=== PATIENT | female | born 1965 | race Caucasian/White ===

== ENCOUNTER 2018-06-21 14:45 | Inpatient (IN) | payer OTHER ==
[2018-06-21] VITALS (10 sets, daily range): BP systolic 113–148; BP diastolic 56–83
[~2018-06-21] VITALS: Ht 165.1 cm; Wt 86.2 kg
[2018-06-21] MEDS ORDERED: CELEXA20 MG PO (15:21)
[2018-06-21] MEDS ORDERED: XANAX 0.5 MG0.5 MG PO (15:22)
[2018-06-21] MEDS ORDERED: LOPRESSOR50 PO (15:22)
[2018-06-21] MEDS ORDERED: PROTONIX 20 MG20 M1 PO (15:22)
[2018-06-21 15:27] LABS: ABSOLUTE NEUTROPHILS 6.3 thou/uL (1.4-8.2); BASOPHILS 0.3 % (0.0-2.0); EOSINOPHILS 0.2 % (0.0-3.0); HEMATOCRIT 48.4 % (37.0-47.0); HEMOGLOBIN 17.1 gm/dL (12.0-15.0); LYMPHOCYTES 27.5 % (24.0-44.0); MCH 34.6 pg (26.0-34.0); MCHC 35.3 g/dL (28.0-37.0); MONOCYTES 3.1 % (1.0-8.0); PLATELET COUNT 212 thou/uL (150-400); POLYS 68.9 % (36.0-66.0); RBC 4.94 mil/uL (4.20-5.00); RDW 13.9 % (10.5-14.5); WBC 9.2 thou/uL (4.0-11.0)
[2018-06-21 15:35] LABS: ANION GAP 17 mmol/L (7-16); BUN 6 mg/dL (7-18); CALCIUM 9.9 mg/dL (8.5-10.1); CHLORIDE 96 mmol/L (98-107); CO2 23 mmol/L (21-32); CREATININE 0.8 mg/dL (0.6-1.0); GLUCOSE 138 mg/dL (74-106); POTASSIUM 3.2 mmol/L (3.5-5.1); SODIUM 136 mmol/L (136-145)
[2018-06-21 15:44] LABS: SGOT 85 U/L (15-37); SGPT 48 U/L (30-65); TOTAL BILIRUBIN 1.1 mg/dL (<0.1-1.0); TOTAL PROTEIN 8.4 g/dL (6.4-8.2); TROPONIN-I <0.06 ng/mL (<0.06)
[2018-06-21 17:26] LABS: MAGNESIUM 1.4 mg/dL (1.8-2.4); PHOSPHORUS 2.4 mg/dL (2.5-4.9)
[2018-06-21 17:53] LABS: FOLIC ACID 5.6 ng/mL (8.6-58.9)
--- NOTE | 2018-06-21 19:12 | NUR ---
Patient admitted to room 245 from ED via cart. Able to stand and get to the bed independently. Tremers noted. Some headache and nausea. Able to eat small bites of food. CIWAs as documented. Had home meds alprazolam bottle with family member's name on it, this was put into security bag and sent to pharmacy. Purse searched, no other medications. Continue to monitor.
[2018-06-22] VITALS (21 sets, daily range): BP systolic 118–156; BP diastolic 63–92
[2018-06-22 00:32] LABS: MAGNESIUM 1.5 mg/dL (1.8-2.4); POTASSIUM 3.5 mmol/L (3.5-5.1)
--- NOTE | 2018-06-22 02:16 | NUR ---
ASSUMED CARE OF PT AT 1900. PT HAD RECENTLY ARRIVED IN THE ICU FROM THE ER. PT HAS BEEN A&O X4, ANXIOUS, AND HAS A HEADACHE OFF AND ON. AT TIMES, PT HAS HAD SOME NAUSEA. CIWA HAS RANGED MOSTLY BETWEEN 5 AND 9, WITH ONE RESULT 13. PT HAS BEEN GIVEN ATIVAN TWICE, AND RESPONDS WELL TO IT. MAGNESIUM AND POTASSIUM REPLACED AROUND 1999 FROM ADMISSION LABS. MAGNESIUM AND POTASSIUM STILL LOW WHEN RECHECKED, AND BOTH WERE REPLACED AGAIN PER PROTOCOL. ELECTROLYTES WILL BE CHECKED WITH MORNING LABS. ASSESSMENTS AND VITALS DOCUMENTED. WILL CONTINUE TO MONITOR.
[2018-06-22 05:29] LABS: MAGNESIUM 1.6 mg/dL (1.8-2.4); POTASSIUM 3.4 mmol/L (3.5-5.1)
[2018-06-22 10:11] LABS: MAGNESIUM 1.5 mg/dL (1.8-2.4); POTASSIUM 3.3 mmol/L (3.5-5.1)
[2018-06-22 16:13] LABS: POTASSIUM 4.3 mmol/L (3.5-5.1)
--- NOTE | 2018-06-22 16:31 | NUR ---
SHIFT SUMMARY: ALERT AND ORIENTED, TREMORS NOTED AND ON ETOH WITHDRAWAL PROTOCOL. VITALS STABLE, MEDICATED FOR ANXIETY WITH PRN MEDS. TOLERATING DIET WELL, MILD NAUSEA AND PRN ZOFRAN GIVEN WITH RELIEF. UP TO THE BATHROOM WITH ASSIST. FALL PRECAUTIONS IN PLACE. WILL CONTINUE WITH POC.
--- NOTE | 2018-06-22 22:09 | EKG ---
[address] [place] [address] ELECTROCARDIOGRAM REPORT Name: SERGIO VERGARA Room #: 245-P ADM IN M.R.#: [id number] Admission: 06/21/18 Attend Phys: Isidoro Boss Discharge: Date of : 63 Report #: [id number] THIS REPORT FOR: //name// [facility] ED Test Date: 2018-06-21 Test Time: 14:58:43 Pat Name: SERGIO VERGARA Department: Room: [facility] Gender: F Transit Mix Operator: AME : 1965 Requested By: Charlee Cunningham Order Number: [id number] MD: Laurent Prabhakar Measurements Intervals [place] Rate: 74 P: 59 WV: 154 QRS: 20 QRSD: 86 T: -1 QT: 493 QTc: 547 Interpretive Statements Sinus rhythm Probable left atrial enlargement Nonspecific T abnormalities, inferior leads No previous ECG available for comparison Electronically Signed On 06-22-2018 22:08:54 DRILL SHARPENER OPERATOR by Laurent Prabhakar [email or web address] <ELECTRONICALLY SIGNED> By: Laurent Prabhakar MD 06/22/18 [id number] MD SUE Valdez
[2018-06-22 23:11] LABS: AMP/METHAMP Negative (Negative); BARBITURATES Negative (Negative); BENZODIAZEPINES POSITIVE (Negative); COCAINE Negative (Negative); METHADONE Negative (Negative); OPIATES POSITIVE (Negative); PCP Negative (Negative)
[2018-06-23] VITALS (25 sets, daily range): BP systolic 121–159; BP diastolic 66–86
--- NOTE | 2018-06-23 05:05 | NUR ---
PT IS STILL AGITATED AND TREMORING DURING NOC SHIFT WITH CWAL 7-9. SYMPTOMS WERE HELPED WITH MEDICATION. ASSESSMENT CHARTED. UDS WAS SENT TO LAB WITH POSTIVE RESULTS FOR BENZOS AND OPIODS. PLANS ARE FOR PATIENT TO BE EVALUATED BY PSYCH TODAY. CALL LIGHT IN REACH. ALL NEEDS ADDRESSED. CONTINUE WIHT POC.
[2018-06-23 05:33] LABS: CALCIUM 8.6 mg/dL (8.5-10.1); CREATININE 0.7 mg/dL (0.6-1.0); MAGNESIUM 1.7 mg/dL (1.8-2.4); PHOSPHORUS 3.1 mg/dL (2.5-4.9); POTASSIUM 3.9 mmol/L (3.5-5.1)
--- NOTE | 2018-06-23 09:08 | NUR ---
Recommend folate and thiamine supplementation. folate level is 5.6 low.
--- NOTE | 2018-06-23 17:37 | NUR ---
PT A&O X4, PLEASANT AND COOPERATIVE. GIVEN ATIVAN PRN FOR CIWA >9. GIVEN HYDROCODONE FOR PAIN X2 TODAY. UP TO CHAIR. AMBULATING IN ROOM WITH STEADY GAIT. PLAN FOR TRANSFER TO TELE THIS EVENING. WILL CONTINUE TO MONITOR PATIENT.
--- NOTE | 2018-06-23 18:18 | NUR ---
REPORT GIVEN TO , RN 4WEST. PT TRANSFERRED WITH BELONGINGS.
[2018-06-24 05:33] VITALS: BP 140/85
--- NOTE | 2018-06-24 07:28 | NUR ---
Assumed care at 1845. Pt resting in bed. Hasnt displayed any aggressive behavior. Stated she is feeling much better. No identified needs at the moment, call light within reach. Will continue to monitor.
[2018-06-24 07:31] VITALS: BP 125/77
[2018-06-24 14:25] VITALS: BP 141/78
--- NOTE | 2018-06-24 16:15 | NUR ---
ASSUMED CARE AT 0700. AXOX4. PLEASANT. DENIES ANY HALLUCINATIONS OR CHANGES IN VISION. FOLLOWS COMMANDS WELL AND ON KEV LIBRIUM. BED ALARM ON. NO TREMORS NOTED AT THIS TIME. NECK PAIN TX WITH PAIN MEDS NORCO. THE BEHAVIORAL ISSUES SUCH AGITATION OR RESTLESS NOTED AT THIS TIME. WILL CONT TO MONOTOR CLOSELY FOR ANY CHANGES. PLACED NEAR THE NURSING STATION AND FREQUENY VISUAL CHECKS RENDERED.
[2018-06-24 19:15] VITALS: BP 131/71
--- NOTE | 2018-06-25 03:48 | NUR ---
Pt. rested quietly at intervals during the night when checked on during frequent rounds. She does c/o neck pain and was given po pain meds (see emar) with some relief noted. Up to the bathroom with standby assistance. Bed alarm is on.
[2018-06-25 05:46] VITALS: BP 131/80
[2018-06-25 08:00] VITALS: BP 137/83
[2018-06-25] MEDS ORDERED: CHLORDIAZEPOXID25 M1 PO (10:44)
[2018-06-25] MEDS ORDERED: FOLIC ACID1 MG PO (10:45)
[2018-06-25] MEDS ORDERED: VITAMIN B-1100 M1 PO (10:45)
[2018-06-25 10:51] VITALS: BP 131/80
--- NOTE | 2018-06-25 11:31 | NUR ---
DIS PT IS FOR DC TODAY. IV AND HEART MONITOR DC'D. DC PACKET AND MED SCRIPTS PROVIDED. PT IS STILL WAITING FOR HER RIDE AT THIS MOMENT.
[2018-06-25 12:47] VITALS: BP 131/80
== END 2018-06-25 13:16 | disposition home or self-care (01) | DRG 640 ==
LOC: ER 14:45 → ICU 16:30 → EROBS 16:30 → ICU 17:26 → 4W 06-23 18:34
PROVIDERS: Internal Medicine; Physician Assistant; ADMIT Hospitalist
DX: E87.6 Hypokalemia (principal); G92 Toxic encephalopathy; F10.231 Alcohol dependence with withdrawal delirium; E46 Unspecified protein-calorie malnutrition; R44.3 Hallucinations, unspecified; R07.89 Other chest pain; F32.9 Major depressive disorder, single episode, unspecified; F41.9 Anxiety disorder, unspecified; E83.42 Hypomagnesemia; Z68.31 Body mass index [BMI] 31.0-31.9, adult; Z88.0 Allergy status to penicillin; Z88.8 Allergy status to other drugs, medicaments and biological substances; Z91.81 History of falling; Z79.899 Other long term (current) drug therapy
CPT/HCPCS: 10045; 10047; 10078

== ENCOUNTER 2018-11-06 09:27 | Emergency (ER) | payer OTHER ==
[~2018-11-06] VITALS: Ht 167.6 cm; Wt 88.5 kg
[~2018-11-06 09:27] MED LIST: CELEXA20 MG PO; CHLORDIAZEPOXID25 M1 PO; FOLIC ACID1 MG PO; LOPRESSOR50 PO; PROTONIX 20 MG20 M1 PO; VITAMIN B-1100 M1 PO; XANAX 0.5 MG0.5 MG PO
[2018-11-06] MEDS ORDERED: ADVAIR HFA 230M12 GM INH (11:59)
[2018-11-06] MEDS ORDERED: ALLEGRA ALLERG180 MG PO (11:59)
[2018-11-06] MEDS ORDERED: VENTOLIN HFA 1818 GM INH (12:00)
[2018-11-06 12:03] VITALS: BP 166/77
== END 2018-11-06 12:23 | disposition home or self-care (01) ==
LOC: ER 09:27
DX: F10.239 Alcohol dependence with withdrawal, unspecified (principal); Y90.0 Blood alcohol level of less than 20 mg/100 ml; I10 Essential (primary) hypertension; M19.90 Unspecified osteoarthritis, unspecified site; Z88.0 Allergy status to penicillin; Z88.8 Allergy status to other drugs, medicaments and biological substances

== ENCOUNTER 2019-02-17 11:54 | Emergency (ER) | payer OTHER ==
[~2019-02-17] VITALS: Ht 165.1 cm; Wt 74.8 kg
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
[~2019-02-17 11:54] MED LIST changes: +ADVAIR HFA 230M12 GM INH; +ALLEGRA ALLERG180 MG PO; +VENTOLIN HFA 1818 GM INH
[2019-02-17 11:55] VITALS: BP 139/87
[2019-02-17] MEDS ORDERED: ADVAIR 250-501 EACH INH (12:04)
[2019-02-17] MEDS ORDERED: B12INJ IM (12:04)
[2019-02-17] MEDS ORDERED: ERGOCALCIF50000 UNIT PO (12:05)
[2019-02-17] MEDS ORDERED: FOLIC ACID1 MG PO (12:06)
[2019-02-17] MEDS ORDERED: LIDOCAINE PAIN1 EACH TOP (12:09)
[2019-02-17] MEDS ORDERED: ATIVAN0.5 MG PO (12:12)
[2019-02-17] MEDS ORDERED: MULTIPLE VITAM1 EAC2 PO (12:12)
[2019-02-17] MEDS ORDERED: PROTONIX 20 MG20 M1 PO (12:13)
[2019-02-17 12:16] LABS: HEMATOCRIT 35.8 % (37.0-47.0); HEMOGLOBIN 12.2 gm/dL (12.0-15.0); MCH 33.5 pg (26.0-34.0); MCHC 34.2 g/dL (28.0-37.0); MCV 97.9 fL (80.0-100.0); PLATELET COUNT 390 thou/uL (150-400); RBC 3.65 mil/uL (4.20-5.00); RDW 13.4 % (10.5-14.5)
[2019-02-17] MEDS ORDERED: PROAIR RESPICL90 MCG INH (12:18)
[2019-02-17 12:24] LABS: ANION GAP 8 mmol/L (7-16); BUN 4 mg/dL (7-18); CHLORIDE 96 mmol/L (98-107); CO2 28 mmol/L (21-32); CREATININE 0.7 mg/dL (0.6-1.0); GLUCOSE 110 mg/dL (74-106); POTASSIUM 3.1 mmol/L (3.5-5.1); SODIUM 132 mmol/L (136-145)
[2019-02-17 12:30] LABS: URINE BLOOD 1+ (Negative); URINE GLUCOSE-RANDOM* NEGATIVE (Negative); URINE KETONES NEGATIVE (Negative); URINE LEUKOCYTES-REFLEX NEGATIVE (Negative); URINE NITRITE-REFLEX NEGATIVE (Negative); URINE PROTEIN (DIPSTICK) 1+ (Negative); URINE SPECIFIC GRAVITY >= 1.030 (1.005-1.035)
[2019-02-17 12:30] LABS: ALBUMIN 2.9 g/dL (3.4-5.0); SGOT 65 U/L (15-37); SGPT 38 U/L (30-65); TOTAL BILIRUBIN 1.2 mg/dL (<0.1-1.0); TOTAL PROTEIN 6.8 g/dL (6.4-8.2)
[2019-02-17 12:31] LABS: SALICYLATE < 2.8 mg/dL (2.8-20.0)
[2019-02-17 12:32] LABS: URINE CLARITY SL HAZY; URINE COLOR DK YELLOW
[2019-02-17 12:35] LABS: ICTOTEST (BILI CONFIRMATORY) Negative (Negative); URINE BILIRUBIN NEGATIVE (Negative)
[2019-02-17 12:51] LABS: AMP/METHAMP Negative (Negative); BARBITURATES POSITIVE (Negative); BENZODIAZEPINES Negative (Negative); COCAINE Negative (Negative); METHADONE Negative (Negative); OPIATES Negative (Negative); PCP Negative (Negative)
[2019-02-17 12:52] LABS: CASTS None Seen /LPF (None Seen); MUCUS >6 Heavy strn/LPF (None Seen); SQUAMOUS 4-10 Moderate /LPF (0-3)
[2019-02-17 12:53] LABS: BACTERIA-REFLEX 1-9 Few /HPF (None Seen); CRYSTALS None Seen /LPF (None Seen); URINE RBC 0-2 Rare /HPF (0-2); URINE WBC-REFLEX 0-5 Rare /HPF (0-5)
[2019-02-17 13:04] LABS: ABSOLUTE NEUTROPHILS 4.3 thou/uL (1.4-8.2); ANISOCYTOSIS SLIGHT; LARGE PLATELETS OCCASIONAL
[2019-02-17 19:04] VITALS: BP 146/84
== END 2019-02-17 19:04 | disposition short-term general hospital (02) ==
LOC: ER 11:54 → EROBS 13:18 → ER 13:18
PROVIDERS: Physician Assistant
DX: G93.40 Encephalopathy, unspecified (principal); E87.6 Hypokalemia; E83.42 Hypomagnesemia; I10 Essential (primary) hypertension; F32.9 Major depressive disorder, single episode, unspecified; F41.9 Anxiety disorder, unspecified; R45.851 Suicidal ideations; Z86.59 Personal history of other mental and behavioral disorders; Z88.8 Allergy status to other drugs, medicaments and biological substances; Z88.0 Allergy status to penicillin; Z90.49 Acquired absence of other specified parts of digestive tract